=== PATIENT | female | born 1995 | race Caucasian/White ===

== ENCOUNTER 2018-02-02 23:29 | Emergency (ER) | payer OTHER ==
[2018-02-02 23:56] LABS: #Basophils 0.1 thou/uL (0.0-0.2); #Eosinphils 0.2 thou/uL (0.0-0.7); #Lymphocytes 2.7 thou/uL (1.20-3.40); #Monocytes 0.6 thou/uL (0.11-0.59); #Neutrophils 5.8 thou/uL (1.40-6.50); %Basophils 0.8 % (0.0-1.0); %Lymphocytes 29.1 % (28.0-48.0); %Neutrophils 62.1 % (31.0-61.0); Hemoglobin 12.8 g/dL (12.0-16.0); Mean Corpuscular HGB CONC 33.8 g/dL (32.0-36.0); Mean Corpuscular Hemoglobin 28.9 pg (25.0-35.0); Mean Corpuscular Volume 85.7 fL (78.0-98.0); Mean Platelet Volume 6.8 fL (7.4-10.4); Platelet Count 433 thou/uL (130-400); RBC Distribution Width 12.5 % (11.5-14.5); Red Blood Cell (RBC) Count 4.41 mill/uL (4.00-5.20); White Blood Cell (WBC) Count 9.3 thou/uL (4.8-10.8)
[2018-02-03 00:15] LABS: ALT (SGPT) 26 U/L (8-55); AST (SGOT) 21 U/L (5-34); Albumin 4.5 g/dL (3.5-5.0); Alkaline Phosphatase 63 U/L (40-150); Anion Gap 13 mmol/L (10-20); BUN (Urea Nitrogen) 10 mg/dL (7.0-18.7); Bilirubin, Total 0.2 mg/dL (0.2-1.2); Calc. Creatinine Clearance 0 mL/min (70-130); Carbon Dioxide 24 mmol/L (22-29); Chloride 107 mmol/L (98-107); Estimated GFR-MDRD Greater than 90; Globulin 3.8 g/dL (2.4-3.5); Glucose 93 mg/dL (70-105); Potassium 3.9 mmol/L (3.5-5.1); Protein, Total 8.3 g/dL (6.0-8.3); Sodium 140 mmol/L (136-145)
[2018-02-03 00:22] LABS: Bilirubin Negative (Negative); Blood, Urine Negative (Negative); Clarity CLOUDY (Clear); Glucose, Urine (Dipstick) Negative (Negative); Leukocyte Trace (Negative); Nitrite Negative (Negative); Protein, Urine (Dipstick) Negative (Neg-Trace); Specific Gravity, Urine 1.025 (1.002-1.036); pH, Urine 6.5 (5.0-9.0)
[2018-02-03 00:25] LABS: Bacteria/HPF 1+ HPF (None Seen); Hyaline Casts/LPF 4-6 HYALINE CAST LPF (0-3 Hyaline); Pathc Cast-AUWi Flag 1.01 (0-2.49); RBC/HPF 0-3 HPF (0-3)
--- NOTE | 2018-02-03 09:36 | ULT ---
PRELIMINARY REPORT/[facility]/EMERGENTY AFTER-HOURS PROCEDURE US , Transvaginal EXAM DATE/TIME: 02/03/2018 2:09 AM CLINICAL HISTORY: 22 years old, female; Pain; Other: Cramping, no bleeding, 4-5wks preg; Gestational age or lmp: ; TECHNIQUE: Real-time transvaginal obstetrical ultrasound of the maternal pelvis and a first trimester with image documentation. Transvaginal imaging was used for better evaluation of the fetus and adnexa . COMPARISON: No relevant prior studies available. FINDINGS: GESTATION: Gestation: No visible intrauterine gestation. MATERNAL: Uterus: Normal thickness endometrial stripe. Right adnexa: Small corpus luteum in the right ovary. Right ovary otherwise normal with normal Dopple r signal. Left adnexa: Left ovary is normal with normal Doppler signal. Intraperitoneal: Physiologic amount of free fluid in the pelvis. IMPRESSION: No visible intrauterine gestation. Thank you for allowing us to participate in the care of your patient. Dictated and Authenticated by: Rigo Sims MD 02/03/2018 3:33 AM Central Time ([place] & [place]) FINAL REPORT TRANSVAGINAL PELVIC ULTRASOUND WITH KELLEY SCALE AND COLOR FLOW AND SPECTRAL DOPPLER IMAGING: Date: 02/03/18 FINDINGS/IMPRESSION: I agree with the preliminary report given by Ella. POS: [facility]
== END 2018-02-03 03:50 | disposition home or self-care (01) ==
LOC: ERS 23:29
DX: O99.89 Other specified diseases and conditions complicating pregnancy, childbirth and the puerperium (principal); R10.30 Lower abdominal pain, unspecified; O99.341 Other mental disorders complicating pregnancy, first trimester; F41.9 Anxiety disorder, unspecified; F32.9 Major depressive disorder, single episode, unspecified; O99.331 Smoking (tobacco) complicating pregnancy, first trimester; F17.210 Nicotine dependence, cigarettes, uncomplicated; Z3A.01 Less than 8 weeks gestation of pregnancy
CPT/HCPCS: 36415; 76856; 80053; 81003; 81015; 84702; 85025; 86900; 86901; 87086

== ENCOUNTER 2018-02-06 14:35 | Emergency (ER) | payer OTHER | END 2018-02-06 16:00 | disposition home or self-care (01) | LOC: ERS 14:35 | DX: O99.89 Other specified diseases and conditions complicating pregnancy, childbirth and the puerperium (principal); O99.341 Other mental disorders complicating pregnancy, first trimester; F41.9 Anxiety disorder, unspecified; F32.9 Major depressive disorder, single episode, unspecified; O99.331 Smoking (tobacco) complicating pregnancy, first trimester; F17.210 Nicotine dependence, cigarettes, uncomplicated; Z3A.01 Less than 8 weeks gestation of pregnancy | CPT/HCPCS: 84702; 99284 ==

== ENCOUNTER 2018-02-18 19:23 | Emergency (ER) | payer OTHER ==
[2018-02-18 19:53] LABS: #Eosinphils 0.4 thou/uL (0.0-0.7); #Lymphocytes 1.9 thou/uL (1.20-3.40); #Monocytes 0.4 thou/uL (0.11-0.59); #Neutrophils 3.9 thou/uL (1.40-6.50); %Basophils 0.7 % (0.0-1.0); %Eosinophils 5.4 % (0.0-10.0); %Lymphocytes 28.8 % (28.0-48.0); %Monocytes 6.5 % (0.0-4.0); %Neutrophils 58.7 % (31.0-61.0); Mean Corpuscular HGB CONC 32.7 g/dL (32.0-36.0); Mean Corpuscular Hemoglobin 28.5 pg (25.0-35.0); Mean Corpuscular Volume 87.3 fL (78.0-98.0); Mean Platelet Volume 6.7 fL (7.4-10.4); Platelet Count 398 thou/uL (130-400); RBC Distribution Width 12.6 % (11.5-14.5); Red Blood Cell (RBC) Count 4.55 mill/uL (4.00-5.20); White Blood Cell (WBC) Count 6.6 thou/uL (4.8-10.8)
[2018-02-18 20:54] LABS: Bilirubin Negative (Negative); Blood, Urine Trace (Negative); Clarity CLOUDY (Clear); Glucose, Urine (Dipstick) Negative (Negative); Leukocyte Moderate (Negative); Nitrite Negative (Negative); Protein, Urine (Dipstick) Negative (Neg-Trace); Urobilinogen 0.2 mg/dL (0.2-1.0); pH, Urine 5.5 (5.0-9.0)
[2018-02-18 20:58] LABS: Bacteria/HPF 1+ HPF (None Seen); Hyaline Casts/LPF 0-3 HYALINE CAST LPF (0-3 Hyaline); Pathc Cast-AUWi Flag 0.14 (0-2.49); WBC/HPF 21-50 HPF (0-3)
--- NOTE | 2018-02-18 22:21 | ULT ---
PELVIC ULTRASOUND WITH DOPPLER: 02/18/18 PROVIDED CLINICAL HISTORY: Vaginal spotting. FINDINGS: Single live intrauterine gestation is documented with crown-rump length corresponding to a 6 week, 1 day gestation. heart tones 115 beats per minute documented. Small amount of perigestational hem orrhage. Normal appearing yolk sac. Right ovary appears sonographically normal. Left ovary is not distinctly identified. No evidence for free pelvic fluid. Color doppler and spectral analysis of the right ovarian waveform demonstrates nor mal blood flow. IMPRESSION: Single live intrauterine gestation, 6 weeks, 1 day by crown-rump length. POS: [facility]
== END 2018-02-18 22:52 | disposition home or self-care (01) ==
LOC: ERS 19:23
DX: O20.0 Threatened abortion (principal); O23.41 Unspecified infection of urinary tract in pregnancy, first trimester; O99.341 Other mental disorders complicating pregnancy, first trimester; F41.9 Anxiety disorder, unspecified; F32.9 Major depressive disorder, single episode, unspecified; Z87.891 Personal history of nicotine dependence; Z3A.01 Less than 8 weeks gestation of pregnancy
CPT/HCPCS: 36415; 76856; 81003; 81015; 84702; 85025; 87086

== ENCOUNTER 2018-07-03 22:12 | Day surgery (SDC) | payer OTHER ==
[2018-07-03 22:48] VITALS: BP 100/63; TEMP 98.5; BMI 35.9
--- NOTE | 2018-07-04 | PRG ---
DATE OF SERVICE: 07/03/2018 PRIMARY OB: Jean Quijano MD. CHIEF COMPLAINT: Decreased movement. HISTORY OF PRESENT ILLNESS: The patient is a 23-year-old, G2, P1 female with an intrauterine at 25 weeks and 4 days, who is presenting today to Labor and Delivery with decreased movement x1 day. The patient does admit that since being placed on the monitor, she has been feeling the baby move again. The patient reports a history of abnormal genetic screen of undetermined significance with followup with MFM not demonstrating any clear concerns. The patient denies any contractions, vaginal bleeding, change in discharge, urinary urgency. She denies any recent illness, fever, fall, headache, chest pain, shortness of breath. She has had nausea and vomiting with this and has had constipation with a bowel movement about every three days. The patient denies any new rashes, hip problems, knee problems, muscle weakness. PAST MEDICAL HISTORY: Negative. PAST SURGICAL HISTORY: Negative. ALLERGIES: NO KNOWN DRUG ALLERGIES. MEDICATIONS: vitamins. SOCIAL HISTORY: Denies drug, alcohol, or tobacco use. OB LABS: Unavailable at time of dictation. REVIEW OF SYSTEMS: Per HPI. PHYSICAL EXAMINATION: VITAL SIGNS: Blood pressure is 100/63, heart rate of 84, saturating 98% on room air. GENERAL: She appears to be in no acute distress. She is alert, oriented, cooperative, and pleasant to interact with. HEAD: Normocephalic, atraumatic. LUNGS: Clear to auscultation bilaterally. HEART: Has regular rate and rhythm. ABDOMEN: Gravid and soft, nontender to palpation. EXTREMITIES: Nontender with some bilateral symmetrical edema that is minimal. : Deferred. Fetus has a baseline in the 150s with moderate long-term variability, appropriate for 24 weeks' gestation. Tocometer does not demonstrate any contraction pattern. ASSESSMENT AND PLAN: The patient is a 23-year-old female with an intrauterine at 25 weeks, who had presented for decreased movement. However, the patient has begun feeling the baby move once placement of heart tracing monitor was completed. Fetus has a reassuring heart tracing for gestational age. The patient has an appointment with her primary OB, Dr. Quijano in 10 days, which we have encouraged that she keep. The patient has been given reassurance and been discharged to home. Job ID: [id number]
== END 2018-07-04 00:17 | disposition home or self-care (01) ==
LOC: L&D/OP 22:12
PROVIDERS: ATTEND Obstetrics & Gynecology
DX: O36.8120 Decreased fetal movements, second trimester, not applicable or unspecified (principal); Z3A.25 25 weeks gestation of pregnancy
CPT/HCPCS: 99282

== ENCOUNTER 2018-07-24 12:29 | Day surgery (SDC) | payer OTHER ==
[2018-07-24 13:28] VITALS: BP 115/60; TEMP 98.9
[2018-07-24 13:29] VITALS: BMI 37.5
[2018-07-24 13:35] LABS: Amnisure Test No Membranes Rupture (No Rupture)
[2018-07-24 13:36] LABS: Amnisure Internal Control QC ACCEPTABLE (ACCEPTABLE)
--- NOTE | 2018-07-24 15:01 | ULT ---
[facility] History: Pain Comparison: Pelvic ultrasound February 2018 Findings: Real-time grayscale, spectral, and color analysis of the gravid uterus performed transabdom inal approach. Single viable intrauterine with average ultrasound age 28 week 2 day with estimated date of delivery October 14, 2018. Estimated weight is 2 lbs. 11 oz., 29th percentile. Biometry: Biparietal diameter: 6.88 cm, 27 week 5 day, 13th percentile Head circumference: 26.41 cm, 28 week 5 day, 23rd percentile Abdominal circumference: 23.84 cm, 28 week 1 day, 30th percentile Femur length: 5.43 cm, 28 week 5 day, 39th percentile Amniotic fluid index: 14.3 cm. heart rate documented at 1 55 bpm. The position is breech and the placenta is anterior. The cervix is closed and measures 3.7 cm i n length. Limited anatomy of the head, cord insertion, bladder, three-vessel cord are all normal. Impression: Normal single viable intrauterine .
--- NOTE | 2018-07-25 01:52 | SS ---
DATE OF ADMISSION: 07/24/2018 DATE OF DISCHARGE: 07/24/2018 REGULAR PHYSICIAN: Jean Quijano MD. EVALUATING PHYSICIAN: Pasquale Merino MD CHIEF COMPLAINT: Leaking of fluid at home. HISTORY OF PRESENT ILLNESS: Ms. Cosme is a 23-year-old white G2, P1-0-0-1 with an estimated date of confinement of 10/12/2018, who presents complaining of suspected leakage of fluid from her vagina since 10:00 am. She denies contractions or active vaginal bleeding. Her care has been with Dr. Quijano and has apparently been complicated by an elevated NIPT test. She has seen a Maternal Medicine doctor here locally for that. PAST OBSTETRICAL HISTORY: One vaginal delivery at term. PAST MEDICAL HISTORY: None. PAST SURGICAL HISTORY: Appendectomy, tonsillectomy, adenoidectomy. CURRENT MEDICATIONS: vitamins. ALLERGIES: NO KNOWN ALLERGIES. SOCIAL HISTORY: Denies tobacco, alcohol, or drug use. FAMILY HISTORY: Unremarkable. REVIEW OF SYSTEMS: She denies nausea, vomiting, fever, chills, vaginal bleeding, or decreased movement. PHYSICAL EXAMINATION: GENERAL: In triage, she is pleasant and certainly in no acute distress. ABDOMEN: Soft, nontender, and gravid. heart rate tracing is stable. No significant regular uterine contractions are seen. AmniSure test came back negative. As a result, a limited ultrasound is obtained and this shows an ANTONIETTA of 14 with cervix of 4 cm in length. SHIP CARPENTER-III testing returns positive for Gardnerella. ASSESSMENT: 1. 27-week intrauterine . 2. No evidence of ruptured membranes at this time. 3. Bacterial vaginosis. PLAN: The nature of the results have been discussed with the patient in detail. She was given a prescription for Flagyl 250 mg one p.o. t.i.d., to be taken for 7 days. She voiced understanding of her instructions and was sent home in good condition. Dr. Quijano was notified. Job ID: [id number]
== END 2018-07-24 15:24 | disposition home or self-care (01) ==
LOC: L&D/OP 12:29
PROVIDERS: ATTEND Obstetrics & Gynecology
DX: O23.592 Infection of other part of genital tract in pregnancy, second trimester (principal); N76.0 Acute vaginitis; B96.89 Other specified bacterial agents as the cause of diseases classified elsewhere; Z3A.27 27 weeks gestation of pregnancy; Z91.018 Allergy to other foods
CPT/HCPCS: 76815; 84112; 87480; 87510; 87660; 99284

== ENCOUNTER 2018-08-20 01:20 | Day surgery (SDC) | payer OTHER ==
[2018-08-20 01:48] VITALS: BP 110/65; TEMP 98.2; BMI 37.5
--- NOTE | 2018-08-20 04:17 | SS ---
DATE OF ADMISSION: 08/20/2018 DATE OF DISCHARGE: 08/20/2018 REGULAR PHYSICIAN: Jean Quijano M.D. EVALUATING PHYSICIAN: Pasquale Merino M.D. CHIEF COMPLAINT: Spotting at home. HISTORY OF PRESENT ILLNESS: Ms. Cosme is a 23-year-old G2, P1-0-0-1 with an estimated date of confinement of 10/12/2018, who presents early this morning complaining of spotting at home. She denies associated contractions or leakage of fluid. Her care has been with Dr. Quijano and has apparently been complicated by an elevated NIPT test for which she has had evaluation by Maternal . It appears her workup has been negative. I saw her last month at which point she had an ultrasound that was normal with a normally positioned placenta. PAST OBSTETRICAL HISTORY: One vaginal delivery at term. PAST MEDICAL HISTORY: None. PAST SURGICAL HISTORY: Appendectomy, tonsillectomy. CURRENT MEDICATIONS: vitamins. ALLERGIES: NO KNOWN ALLERGIES. SOCIAL HISTORY: Denies tobacco, alcohol, or drug use. FAMILY HISTORY: Unremarkable. REVIEW OF SYSTEMS: Denies nausea, vomiting, fever, chills, ruptured membranes, or contractions. PHYSICAL EXAMINATION: VITAL SIGNS: Vital signs are stable. She is afebrile. GENERAL: She is pleasant and in no distress. ABDOMEN: Soft, nontender, and gravid. heart rate tracing is stable. There are no decelerations. No uterine contractions are seen. Sterile speculum exam shows no blood in the vagina. Sterile vaginal exam shows the cervix to be fingertip dilated, thick, and uneffaced. ASSESSMENT: 1. 32-1/2 week intrauterine . 2. No evidence of bleeding at this time. PLAN: The patient will be dismissed to home. She was given complete precautions. She voiced understanding of her discharge instructions. Dr. Quijano was notified. Job ID: [id number]
== END 2018-08-20 02:25 | disposition home or self-care (01) ==
LOC: L&D/OP 01:20
PROVIDERS: ATTEND Obstetrics & Gynecology
DX: O26.853 Spotting complicating pregnancy, third trimester (principal); Z3A.32 32 weeks gestation of pregnancy
CPT/HCPCS: 99283

== ENCOUNTER 2018-09-16 14:52 | Day surgery (SDC) | payer OTHER ==
[2018-09-16 15:28] VITALS: BMI 37.5
[2018-09-16] MEDS ORDERED: hydrALAZINE 20 MG/ML VIAL SLOW IVP PRN (15:44)
--- NOTE | 2018-09-16 15:46 | PDOC.LDHP ---
Labor and Delivery H&P Chief complaint: decreased movement HPI: Patient of Dr Quijano Here for CC: Decreased FM, now resolved EGA: 36 weeks 2 days HPI: 23 yo at 36 weeks 2 days with some decreased FM this am, now better. No LOF, no VB. No trauma. review of Systems: states HX depression but not on meds- stable. Full ROS completed and as per HPI Current gestational age (weeks): 36 (2 Days) Due date: 10/12/18 Grav: 2 Para: 1 OB History Details: x1 Current complications: none Abnormal US findings: No Past Medical History: HX Depression, not needing meds Current medications: pre- vitamins Previous surgical history: appendectomy, other (T&A) Allergies/Adverse Reactions: Allergies Allergy/AdvReac Type Severity Reaction Status Date / Time kiwi Allergy Intermediate Rash Verified 09/16/18 15:26 - Physical Exam Vital signs reviewed and normal: yes (101/59 102 18) General: NAD Heart: RRR Lungs: CTAB Abdomen: gravid [place] contractions every: No CTX - Assessment Decreased FM with Cat 1 strip at 36 weeks...audible FM and felt on abdomen - Plan Plan: observation in L&D (NST reactive, no evidence labor. OK for outpatient follow up. No acute depression concerns.)
== END 2018-09-16 16:08 | disposition home or self-care (01) ==
LOC: L&D/OP 14:52
PROVIDERS: ATTEND Obstetrics & Gynecology
DX: O36.8130 Decreased fetal movements, third trimester, not applicable or unspecified (principal); O99.343 Other mental disorders complicating pregnancy, third trimester; F32.9 Major depressive disorder, single episode, unspecified; Z3A.36 36 weeks gestation of pregnancy; Z91.018 Allergy to other foods
CPT/HCPCS: 99282

== ENCOUNTER 2018-09-21 16:01 | Day surgery (SDC) | payer OTHER ==
[2018-09-21 16:27] VITALS: BP 111/65; TEMP 98.7
[2018-09-21 16:29] VITALS: BMI 37.5
[2018-09-21] MEDS ORDERED: hydrALAZINE 20 MG/ML VIAL SLOW IVP PRN (16:59)
--- NOTE | 2018-09-21 17:03 | PDOC.FPROB ---
FMR OB H&P: HPI - History of Present Illness Chief Complaint: Contractions History of Present Illness: 23 yo @ 37.0 weeks presents for contractions that began at 12:40 pm today. She notes they have increased in frequency and now have become painful. Occurring q3-4 min. She notes that en route to hospital she began to feel SOB, a little dizzy with a funny feeling in her chest. She is unable to further describe. Denies chest pain or palpitations. No cardiac hx. Denies swelling, VB , VD, LOF, dysuria. Tolerating PO intake well. Denies current dizziness. Full ROS completed and as per HPI. Primary Care Physician: Macie FMR OB H&P: Current - Care : 2 Para: 1 Gestational age: 37.0 Due date: 10/12/2018 Course/Complications: Patient reports abnormal genetic screening, denied amniocentesis. - OB Labs Blood type: A RH: positive Antibody Screen: negative HIV: negative RPR: negative HepBsAg: negative Rubella: immune Gonorrhea: negative Chlamydia: negative FMR OB H&P: History - Past Medical History PMH: Depression, not requiring medication - OB History OB History: x1 in 2016 - Surgical History Sx History: appendectomy, tonsillectomy - Social History Social History: Denies tobacco, alcohol, or drug use this . FMR OB H&P: Medications - Current Home Medications: Medication Instructions Recorded Confirmed Type No Known 09/21/18 09/21/18 History Allergies/Adverse Reactions: Allergies Allergy/AdvReac Type Severity Reaction Status Date / Time kiwi Allergy Intermediate Rash Verified 09/16/18 15:26 FMR OB H&P: Vital Signs - Maternal Vital signs: Vital Signs - First Documented Temp Pulse Resp BP 98.7 F 126 H 18 111/65 09/21/18 16:26 09/21/18 16:26 09/21/18 16:26 09/21/18 16:26 - Heart Tones Baseline: 130 Variability: moderate Acceleration: present Deceleration: absent [place] contractions every: q3-4 min, now none FMR OB H&P: Physical Exam - Physical Exam General: awake, alert and oriented HEENT: normocephalic and atraumatic Heart: RRR, normal S1/S2, no edema General: CTAB, no respiratory distress, good air movement, no wheezing Abdomen: soft, gravid, non-tender Skin: good tugor, capillary refill <2 seconds Psychiatric: normal mood and affect - Pelvic Exam Vulva: normal hair distribution SVE: FMR OB H&P: A/P - Problem List (1) Intrauterine Current Visit: Yes Status: Acute Code(s): Z34.90 - ENCNTR FOR SUPRVSN OF NORMAL , UNSP, UNSP TRIMESTER (2) Tachycardia Current Visit: Yes Status: Acute Code(s): R00.0 - TACHYCARDIA, UNSPECIFIED Discussion: Date/Time: 09/21/18 1700 Contractions - FHT reassuring - ctx were noted initially but have slowed down, will continue to monitor - initial exam - will recheck cervix in 2 hours for evidence of progression to labor Tachycardia - will get EKG and monitor O2 sat - if normal, not likely to be PE. Anxiety could be etiology considering reported timing. This H&P was discussed with Dr. Man who agrees with the above documentation and plan.
--- NOTE | 2018-09-21 17:18 | PDOC.EVN ---
Event Note - Event Note Event Note: HISTORY AND PHYSICAL Faculty Attestation CC: CTX and mild SOB enroute to L&D HPI: 23 yo at 37 weeks today here for CTX. She was seen in L&D recently for decreased FM which had normal eval then. No chest pain but mild SOB in car to here. States CTX, no VB, no LOF, good FM Review of Systems: complete ROS completed and as per HPI Past medical: neg OB HX: ; this had "abnormal genetics" but delcined amnio Surgical HX: appy and T&A PHYSICAL BP wnl Pulse 110s afebrile respirations nonlabored, CX 2/tg/-2 (same as previous) monitors: reactive/irregular CTX on toco Assessment and plan: 37 weeks with threatened labor, dyspnea of ...possible mild anxiety. Low suspicion for acute pulmonary event as in no acvute distress. We will: check pulse OX Check EKG Obs for 2 hours monitor O2 sat
--- NOTE | 2018-09-21 17:25 | PDOC.EVN ---
Event Note - Event Note Event Note: EKG and O2 sat normal
--- NOTE | 2018-09-22 17:05 | EKG ---
Test Reason : Blood Pressure : / mmHG Vent. Rate : 107 BPM Atrial Rate : 107 BPM P-R Int : 130 ms QRS Dur : 074 ms QT Int : 342 ms P-R-T Axes : 055 036 010 degrees QTc Int : 456 ms Sinus tachycardia Otherwise normal ECG No previous ECGs available Confirmed by SAMRA TAPIA, DR. Lopez ([id number]) on 09/22/2018 5:05:08 PM Referred By: NADEEM Confirmed By:DR. Jessica CABRALES MD
== END 2018-09-21 18:00 | disposition home or self-care (01) ==
LOC: L&D/OP 16:01
PROVIDERS: ATTEND Obstetrics & Gynecology
DX: O47.1 False labor at or after 37 completed weeks of gestation (principal); O99.89 Other specified diseases and conditions complicating pregnancy, childbirth and the puerperium; R00.0 Tachycardia, unspecified; R06.00 Dyspnea, unspecified; O99.343 Other mental disorders complicating pregnancy, third trimester; F32.9 Major depressive disorder, single episode, unspecified; F41.9 Anxiety disorder, unspecified; Z91.018 Allergy to other foods; Z3A.37 37 weeks gestation of pregnancy
CPT/HCPCS: 93005; 93010; 99283

== ENCOUNTER 2018-10-01 22:42 | Day surgery (SDC) | payer OTHER ==
[2018-10-01 23:12] VITALS: BMI 38.0
[2018-10-01 23:49] LABS: Amnisure Test No Membranes Rupture (No Rupture)
[2018-10-01 23:50] LABS: Amnisure Internal Control QC ACCEPTABLE (ACCEPTABLE)
[2018-10-02] MEDS ORDERED: hydrALAZINE 20 MG/ML VIAL SLOW IVP PRN ×2 (05:14)
[2018-10-02] MEDS ORDERED: Lactated Ringer's 1,000 ML IV SCH ×2 (05:15)
--- NOTE | 2018-10-02 06:35 | PRG ---
DATE OF SERVICE: 10/01/2018 PRIMARY OB PHYSICIAN: Jean Quijano MD CHIEF COMPLAINT: Uterine contractions. HISTORY OF PRESENT ILLNESS: The patient is a 23-year-old, G2, P1 female with an intrauterine at 38 weeks 4 days, presenting to Labor and Delivery with complaints of uterine contractions. The patient reports that her contractions have been frequent and getting more strong. She reports that her cervix was 2 cm dilated in clinic yesterday. The patient has expressed concern that she lives an hour away in the [place] area. The patient denies vaginal bleeding, leakage of fluid, trauma, urinary urgency or frequency. She denies any recent illness, fever, fall, headache, chest pain, shortness of breath, nausea, vomiting, diarrhea, constipation, any new rashes, hip problems, knee problems, or muscle weakness. PAST MEDICAL HISTORY: Depression. PAST SURGICAL HISTORY: Appendectomy, tonsillectomy, and adenoidectomy. ALLERGIES: NO KNOWN DRUG ALLERGIES. MEDICATIONS: vitamins. OB LABS: Blood type is A positive. Antibody screen is negative. RPR is nonreactive. Hepatitis B surface antigen nonreactive. HIV nonreactive. GC and chlamydia negative. She is rubella immune. Third trimester HIV and VDRL are nonreactive. She had a 1-hour Glucola screen of 148 and 3-hour test is not available. REVIEW OF SYSTEMS: Per HPI. PHYSICAL EXAMINATION: VITAL SIGNS: Blood pressure 110/58, heart rate of 88, respiratory rate 16. GENERAL: She appears to be in no acute distress. She is alert, oriented, cooperative, and pleasant to interact with. HEENT: Head is normocephalic atraumatic. LUNGS: Clear to auscultation bilaterally. HEART: Regular rate and rhythm. ABDOMEN: Gravid and soft. EXTREMITIES: Nontender and nonedematous. CERVIX: Cervical exam per nursing staff, 3, 75, -3 station. Repeat exam is documented at 4, 75, -3 station 2 hours later. Given the patient's distance from the hospital, she was uncomfortable going home and was given the option to continue here for recheck. On re-evaluation, the patient was noted to be 3, 50, and -3 station, unchanged from her initial visit 5 hours previous. The patient expressed discontent with being given this information and refused being to be discharged. On my discussion with the patient, the patient again expressed concern that she had a bulgy bag that she was 4 cm and had changed from 2 cm from the doctor's office and lives an hour away and was uncomfortable going home. We gave the patient the option for continued observation on the floor. At which time, her primary physician could re-evaluate her later in the morning. I checked her cervix myself, called her cervix 2 cm, about 50% effaced, and -3 station. Given my estimation, the patient has had no change from her visit with Dr. Quijano. With these new findings, I explained to the patient. The patient expressed desire to discharge home. Again, we gave her the option of being transferred to the floor as we had a room assigned to her where she could have continued observation and re-evaluation by her doctor later in the morning. The patient again expressed desire for discharge home. We gave her term labor precautions. heart tracing, fetus with a baseline in the 120s with moderate long-term variability, positive 15 x 15 accelerations, no decelerations. Contractions occurring irregularly, difficult to assess, but at through periods of time having contractions every 2 to 4 minutes, again not all felt by the patient. ASSESSMENT AND PLAN: The patient is a 23-year-old female G2, P1 with an intrauterine at 38 weeks 4 days, who after about 6 hours of observation here in Labor and delivery has made no change to her cervix. Fetus has a category 1 tracing and reactive NST. The patient initially resistant to being discharged home, was given the option to go to the floor for observation, and on her own, decided to discharge home with term labor precautions. She does not have an another visit scheduled with her primary OB, Dr. Quijano, but does have an induction date scheduled for next Saturday. The patient is being discharged home at her request with term labor precautions. Job ID: [id number]
== END 2018-10-02 05:33 | disposition home or self-care (01) ==
LOC: L&D/OP 22:42
PROVIDERS: ATTEND Obstetrics & Gynecology
DX: O47.1 False labor at or after 37 completed weeks of gestation (principal); Z3A.38 38 weeks gestation of pregnancy; Z91.018 Allergy to other foods
CPT/HCPCS: 84112; 99285

== ENCOUNTER 2018-10-08 05:30 | Inpatient (IN) | payer OTHER ==
--- NOTE | 2018-10-08 03:35 | PDOC.LDHP ---
Labor and Delivery H&P HPI: 23 y/o at 39 and 3 weeks for term induction of labor Current gestational age (weeks): 39 Due date: 10/12/18 Grav: 2 Para: 1 Current complications: none Abnormal US findings: No Current medications: pre- vitamins Previous surgical history: other Allergies/Adverse Reactions: Allergies Allergy/AdvReac Type Severity Reaction Status Date / Time kiwi Allergy Intermediate Rash Verified 09/16/18 15:26 Social history: none - Physical Exam Vital signs reviewed and normal: yes General: NAD, resting, breathing through contractions Heart: RRR Lungs: CTAB Abdomen: NTTP Extremeties: no edema FHT: category 1 - Assessment L&D Assessment: elective induction at term - Plan Plan: admit to L&D, cervical ripening
[~2018-10-08 05:30] MED LIST: Acetaminophen 500 MG TAB PO PRN; Butorphanol Tartrate 1 MG/ML VIAL SLOW IVP PRN; Carboprost 250 MCG/ML AMP IM PRN; Diphenoxylate HCl/Atropine Tablet PO PRN; HYDROcodone/Acetaminophen 5/325 mg Tablet PO PRN; Ibuprofen 800 MG TAB PO PRN; Lidocaine 1% (PF) 30 ML VIAL SC PRN; Methylergonovine 0.2 MG/ML VIAL IM PRN; Misoprostol 200 MCG TAB PR PRN; NS / Oxytocin 40 units/1000ml 1,000 ML IV PRN; NS w/ Oxytocin 10 units 500 ML IV SCH; Promethazine HCl 25 MG/ML VIAL IM PRN; hydrALAZINE 20 MG/ML VIAL SLOW IVP PRN
[2018-10-08 07:21] VITALS: BMI 38.0
[2018-10-08] MEDS: Lactated Ringer's 1,000 ML IV SCH ×2 (07:43→18:41)
[2018-10-08] MEDS: Ondansetron PF 4 MG/2 ML Vial IVP PRN ×2 (07:57→13:27)
[2018-10-08 08:01] LABS: Hemoglobin 9.2 g/dL (12.0-16.0); Mean Corpuscular HGB CONC 33.5 g/dL (32.0-36.0); Mean Corpuscular Hemoglobin 24.8 pg (27.0-31.0); Mean Corpuscular Volume 74.1 fL (78.0-98.0); Mean Platelet Volume 7.9 fL (7.4-10.4); Platelet Count 353 thou/uL (130-400); RBC Distribution Width 14.5 % (11.5-14.5); Red Blood Cell (RBC) Count 3.69 mill/uL (4.20-5.40); White Blood Cell (WBC) Count 9.3 thou/uL (4.8-10.8)
[2018-10-08 08:41] LABS: HBSAg Index 0.16 S/CO (0-0.99); Hep B Surf Ag Non-Reactive S/CO (NonReactive)
[2018-10-08 08:47] LABS: Syphilis Antibody Nonreactive (Nonreactive); Syphilis Antibody Index 0.03 S/CO (<1.00 Non-Reactive)
[2018-10-08] MEDS ORDERED: Lidocaine 1.5%/Epinephrine 1:200,000 5 ML AMPUL IJ ONE (10:59)
[2018-10-08] MEDS ORDERED: Fentanyl 4 mcg/Bup 0.1% Cadd 100 ML ONE (11:00)
[2018-10-08] MEDS ORDERED: Bupivacaine/Epinephrine 0.25% 30 ML VIAL ONE (11:11)
[2018-10-08] MEDS ORDERED: Promethazine HCl 25 MG/ML VIAL IM PRN ×2 (13:46→18:39)
[2018-10-08] MEDS ORDERED: Acetaminophen 325 MG TAB PO PRN (13:46)
[2018-10-08] MEDS ORDERED: Ondansetron PF 4 MG/2 ML Vial IVP PRN ×2 (13:46→18:39)
[2018-10-08] MEDS ORDERED: diphenhydrAMINE 50 MG/ML VIAL IVP PRN (13:46)
[2018-10-08] MEDS ORDERED: Naloxone HCl 0.4 mg/ml Vial IVP PRN ×2 (13:46)
[2018-10-08] MEDS ORDERED: Lactated Ringer's 500 ML IV PRN (13:46)
[2018-10-08] MEDS ORDERED: ePHEDrine/0.9% NaCl/PF SYRINGE 50 mg/10 ml SLOW IVP PRN (13:46)
[2018-10-08] MEDS ORDERED: diphenhydrAMINE 50 MG/ML VIAL ONE (13:50)
[2018-10-08] MEDS ORDERED: Communication Order-Pharmacy FS SCH (14:00)
[2018-10-08] MEDS ORDERED: Fentanyl 4 mcg/Bupivacaine 0.1% Cassette 100 ML EPIDURAL SCH (14:00)
[2018-10-08] MEDS ORDERED: Misoprostol 200 MCG TAB ONE (15:03)
[2018-10-08] MEDS ORDERED: diphenhydrAMINE 25 MG CAP PO PRN (18:39)
[2018-10-08] MEDS ORDERED: Lanolin Ointment 7 GM TUBE TOP PRN (18:39)
[2018-10-08] MEDS ORDERED: Methylergonovine 0.2 MG/ML VIAL IM PRN (18:39)
[2018-10-08] MEDS ORDERED: Benzocaine-Menthol 82.5 ML CAN TOP PRN (18:39)
[2018-10-08] MEDS ORDERED: Preparation H Ointment 28 GM TUBE PR PRN (18:39)
[2018-10-08] MEDS ORDERED: Bisacodyl 10 MG SUPP PR PRN (18:39)
[2018-10-08] MEDS ORDERED: hydrALAZINE 20 MG/ML VIAL SLOW IVP PRN (18:39)
[2018-10-08] MEDS ORDERED: Measles/Mumps/Rubella 10 MCG/0.5 ML VIAL SC ONE (18:39)
[2018-10-08] MEDS ORDERED: Varicella virus, LIVE 0.5 ML VIAL SC ONE (18:39)
[2018-10-08] MEDS ORDERED: Adacel (T-DAP) 0.5 ML SYRINGE IM ONE (18:39)
[2018-10-08] MEDS ORDERED: Zolpidem Tartrate 5 MG TAB PO PRN (18:39)
[2018-10-08] MEDS ORDERED: HYDROcodone/Acetaminophen 5/325 mg Tablet PO PRN ×2 (18:39)
[2018-10-08] MEDS ORDERED: Milk Of Magnesia 30 ML UDCUP PO PRN (18:39)
[2018-10-08] MEDS ORDERED: NS / Oxytocin 40 units/1000ml 1,000 ML IV SCH (18:45)
[2018-10-08] MEDS: Ibuprofen 800 MG TAB PO SCH (19:39)
[2018-10-08] MEDS: Docusate Calcium (SURFAK) 240 MG CAP PO SCH (21:33)
[2018-10-09] MEDS: Ibuprofen 800 MG TAB PO SCH ×3 (03:04→20:47)
[2018-10-09 04:48] LABS: #Eosinphils 0.1 thou/uL (0.0-0.7); #Lymphocytes 2.4 thou/uL (1.20-3.40); #Monocytes 0.5 thou/uL (0.11-0.59); #Neutrophils 5.6 thou/uL (1.40-6.50); %Basophils 0.5 % (0.0-1.0); %Eosinophils 1.2 % (0.0-10.0); %Lymphocytes 27.7 % (21.0-51.0); %Monocytes 5.2 % (0.0-10.0); %Neutrophils 65.3 % (42.0-75.0); Hemoglobin 8.1 g/dL (12.0-16.0); Mean Corpuscular HGB CONC 32.4 g/dL (32.0-36.0); Mean Corpuscular Hemoglobin 24.6 pg (27.0-31.0); Mean Corpuscular Volume 75.9 fL (78.0-98.0); Mean Platelet Volume 8.1 fL (7.4-10.4); Platelet Count 290 thou/uL (130-400); RBC Distribution Width 14.8 % (11.5-14.5); White Blood Cell (WBC) Count 8.6 thou/uL (4.8-10.8)
[2018-10-09] MEDS: Prenatal Vitamin 1 TAB PO SCH (09:38)
[2018-10-09] MEDS: Docusate Calcium (SURFAK) 240 MG CAP PO SCH ×2 (09:38→20:47)
[2018-10-09] MEDS: Ferrous Sulfate 325 MG TAB PO SCH ×2 (09:38→16:10)
--- NOTE | 2018-10-09 23:36 | PDOC.PP ---
Post Progress Note Post Day #: 1 PO intake tolerated: yes Flatus: yes Ambulation: yes Vital Signs (12 hours) Temp Pulse Resp BP Pulse Ox 10/09/18 20:00 98.9 F 65 18 121/61 99 Weight Weight 208 lb - Physical Examination General: NAD Cardiovascular: no m/r/g, RRR Respiratory: clear to auscultation bilaterally Abdominal: + bowel sounds, lochia Extremities: negative homans (B) Neurological: no gross focal deficits Psychiatric: A&Ox3, normal affect (DC in AM) Result Diagrams: 10/09/18 04:06 Additional Labs: Post Labs Blood Type A POSITIVE 10/08/18 07:46 Hep Bs Antigen Non-Reactive S/CO (NonReactive) 10/08/18 07:46
[2018-10-10] MEDS: Ibuprofen 800 MG TAB PO SCH (05:43)
[2018-10-10 08:25] VITALS: TEMP 98.1
[2018-10-10] MEDS: Ferrous Sulfate 325 MG TAB PO SCH (09:00)
[2018-10-10] MEDS: Docusate Calcium (SURFAK) 240 MG CAP PO SCH (09:03)
[2018-10-10] MEDS: Prenatal Vitamin 1 TAB PO SCH (09:03)
[2018-10-10 12:35] VITALS: BP 114/59
== END 2018-10-10 13:15 | disposition home or self-care (01) | DRG 807 ==
LOC: L&D 06:45 → 3SE 17:39
PROVIDERS: ADMIT Obstetrics & Gynecology; ATTEND Obstetrics & Gynecology
PROC: 10E0XZZ Delivery of Products of Conception, External Approach (ICD-10-PCS; principal; 2018-10-08)
PROC: 3E033VJ Introduction of Other Hormone into Peripheral Vein, Percutaneous Approach (ICD-10-PCS; 2018-10-08)
DX: O80 Encounter for full-term uncomplicated delivery (principal); Z37.0 Single live birth; Z3A.36 36 weeks gestation of pregnancy
CPT/HCPCS: 36415; 51702; 85025; 85027; 86780; 86850; 86900; 86901; 87340; J1200; J2405; J2590; J3490

== ENCOUNTER 2019-08-06 21:52 | Emergency (ER) | payer OTHER ==
[2019-08-06 23:40] LABS: #Eosinphils 0.2 thou/uL (0.0-0.7); #Lymphocytes 1.9 thou/uL (1.20-3.40); #Monocytes 0.4 thou/uL (0.11-0.59); #Neutrophils 4.6 thou/uL (1.40-6.50); %Basophils 0.4 % (0.0-1.0); %Eosinophils 2.3 % (0.0-10.0); %Lymphocytes 26.7 % (21.0-51.0); %Monocytes 5.3 % (0.0-10.0); %Neutrophils 65.3 % (42.0-75.0); Hemoglobin 11.8 g/dL (12.0-16.0); Mean Corpuscular HGB CONC 34.2 g/dL (32.0-36.0); Mean Corpuscular Hemoglobin 29.5 pg (27.0-31.0); Mean Corpuscular Volume 86.2 fL (78.0-98.0); Mean Platelet Volume 7.4 fL (7.4-10.4); Platelet Count 359 thou/uL (130-400); RBC Distribution Width 13.2 % (11.5-14.5); White Blood Cell (WBC) Count 7.1 thou/uL (4.8-10.8)
[2019-08-06 23:40] LABS: Bacteria/HPF None Seen HPF (None Seen); Bilirubin Negative (Negative); Blood, Urine Negative (Negative); Clarity Clear (Clear); Glucose, Urine (Dipstick) Normal (Negative); Leukocyte 75 Leu/uL (Negative); Nitrite Negative (Negative); Protein, Urine (Dipstick) 10 mg/dL (Neg-Trace); RBC/HPF 0-3 HPF (0-3); Squamous Epithelial 0-3 HPF (0-3); Urobilinogen Normal mg/dL (Less than 2); WBC/HPF 0-3 HPF (0-3)
[2019-08-06 23:47] LABS: BHCG - Serum POSITIVE (NEGATIVE); Pregs Control Background? CLEAR/WHITE (CLR/WHITE); Pregs Control Bar Appear? YES (CONTROL BAR)
[2019-08-07 00:09] LABS: ALT (SGPT) 20 U/L (8-55); AST (SGOT) 21 U/L (5-34); Albumin 3.9 g/dL (3.5-5.0); Alkaline Phosphatase 54 U/L (40-110); Anion Gap 13 mmol/L (10-20); BUN (Urea Nitrogen) 9 mg/dL (7.0-18.7); Bilirubin, Total Less than 0.2 mg/dL (0.2-1.2); Calc. Creatinine Clearance 0 mL/min (70-130); Calcium 9.3 mg/dL (7.8-10.44); Carbon Dioxide 21 mmol/L (22-29); Chloride 107 mmol/L (98-107); Estimated GFR-MDRD Greater than 90; Globulin 3.6 g/dL (2.4-3.5); Glucose 75 mg/dL (70-105); Lipase 8 U/L (8-78); Potassium 3.9 mmol/L (3.5-5.1); Protein, Total 7.5 g/dL (6.0-8.3); Sodium 137 mmol/L (136-145)
== END 2019-08-07 01:00 | disposition home or self-care (01) ==
LOC: ERS 21:52
DX: O99.89 Other specified diseases and conditions complicating pregnancy, childbirth and the puerperium (principal); R10.9 Unspecified abdominal pain; O99.342 Other mental disorders complicating pregnancy, second trimester; F41.9 Anxiety disorder, unspecified; F32.9 Major depressive disorder, single episode, unspecified; O99.332 Smoking (tobacco) complicating pregnancy, second trimester; Z3A.15 15 weeks gestation of pregnancy
CPT/HCPCS: 36415; 80053; 81003; 81015; 83690; 84702; 84703; 85025

== ENCOUNTER 2019-11-12 11:40 | Day surgery (SDC) | payer OTHER ==
[2019-11-12] MEDS ORDERED: hydrALAZINE 20 MG/ML VIAL SLOW IVP PRN (12:53)
--- NOTE | 2019-11-12 12:55 | PDOC.LDHP ---
Labor and Delivery H&P Chief complaint: decreased movement (at 29 weeks) HPI: Patient of Dr Quijano here for decreased FM since ysterday PM. No CTX, no VB. No fevers. 24 yo at 29 weeks 5 days, no other issues. Now feels baby move. No recent trauma. Review of Systems: complete ROS completed and as per HPI Current gestational age (weeks): 29 (5) Due date: 01/23/20 Dating criteria: last menstrual period Grav: 3 Para: 2 OB History Details: x 2 with last 2019 Current complications: none Abnormal US findings: No Current medications: pre- vitamins Previous surgical history: appendectomy, other (T&A) Allergies/Adverse Reactions: Allergies Allergy/AdvReac Type Severity Reaction Status Date / Time kiwi Allergy Intermediate Rash Verified 05/04/19 21:23 - Physical Exam Vital signs reviewed and normal: yes (116/68 98.4 98% 18) General: NAD Heart: RRR Lungs: CTAB Abdomen: gravid Extremeties: no edema FHT: category 1 (reaxctive for age at 29) - Assessment Decreased FM at 29 weeks, normal/reassuring 20 minute strip - Plan Plan: observation in L&D (NSTs typically start at 32 weeks per ACOG. This was more of monitoring to assess FHT presence. No BPP as only 29 weeks and now feels baby move. Reassurrance given. return if decresaed FM persists.)
[2019-11-13] MEDS ORDERED: FLU VACC QS2020-21(6MOS UP)/PF 60 MCG/0.5 ML SYRINGE IM ONE (09:00)
== END 2019-11-12 12:55 | disposition home or self-care (01) ==
LOC: L&D/OP 11:40
PROVIDERS: ATTEND Obstetrics & Gynecology
DX: O36.8130 Decreased fetal movements, third trimester, not applicable or unspecified (principal); Z3A.29 29 weeks gestation of pregnancy; Z91.018 Allergy to other foods

== ENCOUNTER 2019-12-12 22:48 | Day surgery (SDC) | payer OTHER ==
--- NOTE | 2019-12-12 23:06 | PDOC.LDHP ---
Labor and Delivery H&P Chief complaint: contractions HPI: 24yo F @ 34. wks presents with complaint of contractions. Pt states at 1900 tonight she started to experience pain in her mid back and RUQ that felt like contractions. She timed them to be 3-4 minutes apart over the course of 1-2 hours prompting her to seek eval. Pt denies any other sx. States she did ride in the car for about 5 hours today which is not typical for her. Denies any vaginal bleeding, discharge, LOF, dysuria, fever, chills. Denies any complications in her at this point. Current gestational age (weeks): 34 Due date: 01/23/20 Dating criteria: last menstrual period, first trimester ultrasound Grav: 3 Para: 2 OB History Details: 2 previous uncomplicated term vaginal deliveries Current complications: none Past Medical History: None Current medications: pre-jong vitamins Previous surgical history: appendectomy Allergies/Adverse Reactions: Allergies Allergy/AdvReac Type Severity Reaction Status Date / Time kiwi Allergy Intermediate Rash Unverified 12/12/19 23:15 Social history: none - Physical Exam Vital signs reviewed and normal: yes General: NAD Heart: RRR Lungs: CTAB Abdomen: gravid Extremeties: no edema FHT: category 1, variability present - Vaginal Exam cm dilated: 1 Effacement: 0% Station: -3 - OB Labs Blood type: A RH: positive 1 hour GCT: positive (147) 3 hour GTT: 80,182,127,138 - Assessment 3rd Trimester - R/O labor - Plan -: -SVE: //High -Galax: q10-12 -Cat 1 strip, reactive -Recheck after 2 hours -SVE: unchanged -[place]: sporadic >15 minutes Plan: Pt not making cervical change and no consistent contraction pattern that is continuing to space out. Will DC with return/labor precautions. Keep routine OB F/U.
[2019-12-12 23:14] VITALS: BMI 39.3
== END 2019-12-13 01:45 | disposition home or self-care (01) ==
LOC: L&D/OP 22:48
PROVIDERS: ATTEND Obstetrics & Gynecology
DX: O47.03 False labor before 37 completed weeks of gestation, third trimester (principal); O99.891 Other specified diseases and conditions complicating pregnancy; M54.9 Dorsalgia, unspecified; Z3A.34 34 weeks gestation of pregnancy; Z91.018 Allergy to other foods

== ENCOUNTER 2020-01-15 10:28 | Outpatient (CLI) | payer OTHER ==
[2020-01-15 17:15] LABS: SARS-CoV-2 MS2 Positive; SARS-CoV-2 N Gene Negative; SARS-CoV-2 S Gene Negative; SARS-CoV-2 by NAA Not Detected (NotDetected); SARS-CoV-2 orf1ab Negative
== END 2020-01-15 10:29 | disposition home or self-care (01) ==
LOC: LABBT 10:28
PROVIDERS: ATTEND Obstetrics & Gynecology
DX: Z01.812 Encounter for preprocedural laboratory examination (principal); Z20.828 Contact with and (suspected) exposure to other viral communicable diseases
CPT/HCPCS: 87635; U0003

== ENCOUNTER 2020-01-18 05:30 | Inpatient (IN) | payer OTHER ==
--- NOTE | 2020-01-17 22:35 | PDOC.LDHP ---
Labor and Delivery H&P Chief complaint: scheduled induction HPI: 24 y/o at 30 and 2/7 weeks for elective induction of labor. Current gestational age (weeks): 39 Due date: 01/23/20 Grav: 3 Para: 2 Current complications: other Abnormal US findings: No Current medications: pre- vitamins Allergies/Adverse Reactions: Allergies Allergy/AdvReac Type Severity Reaction Status Date / Time kiwi Allergy Intermediate Rash Unverified 12/12/19 23:15 Social history: none - Physical Exam Vital signs reviewed and normal: yes General: NAD, resting Heart: RRR Lungs: CTAB Abdomen: gravid Extremeties: no edema FHT: category 1 - Assessment L&D Assessment: elective induction at term - Plan Plan: admit to L&D, cervical ripening
[~2020-01-18 05:30] MED LIST changes: +Lactated Ringer's 1,000 ML IV SCH; +Ondansetron PF 4 MG/2 ML Vial IVP PRN; +Zolpidem Tartrate 5 MG TAB PO PRN
[2020-01-18 06:25] VITALS: BMI 39.4
[2020-01-18 07:33] LABS: Hemoglobin 9.3 g/dL (12.0-16.0); Mean Corpuscular HGB CONC 32.3 g/dL (32.0-36.0); Mean Corpuscular Hemoglobin 23.5 pg (27.0-31.0); Mean Corpuscular Volume 72.7 fL (78.0-98.0); Mean Platelet Volume 8.1 fL (7.4-10.4); Platelet Count 332 thou/uL (130-400); RBC Distribution Width 15.8 % (11.5-14.5); Red Blood Cell (RBC) Count 3.96 mill/uL (4.20-5.40); White Blood Cell (WBC) Count 7.4 thou/uL (4.8-10.8)
[2020-01-18 07:50] LABS: Syphilis Antibody Nonreactive (Nonreactive); Syphilis Antibody Index 0.04 S/CO (<1.00 Non-Reactive)
[2020-01-18 07:51] LABS: HBSAg Index 0.19 S/CO (0-0.99); Hep B Surf Ag Non-Reactive S/CO (NonReactive)
[2020-01-18] MEDS ORDERED: FLU VACC QS2020-21(6MOS UP)/PF 60 MCG/0.5 ML SYRINGE IM ONE (09:00)
[2020-01-18] MEDS ORDERED: Calcium Carbonate 500 MG ChewTAB PO SCH (16:00)
[2020-01-18] MEDS ORDERED: Methylergonovine 0.2 MG TAB ONE (17:24)
[2020-01-18] MEDS ORDERED: Measles/Mumps/Rubella 10 MCG/0.5 ML VIAL SC ONE (18:30)
[2020-01-18] MEDS ORDERED: NS / Oxytocin 40 units/1000ml 1,000 ML IV SCH (18:30)
[2020-01-18] MEDS ORDERED: hydrALAZINE 20 MG/ML VIAL SLOW IVP PRN (18:30)
[2020-01-18] MEDS ORDERED: Preparation H Ointment 28 GM TUBE PR PRN (18:30)
[2020-01-18] MEDS ORDERED: Benzocaine-Menthol 82.5 ML CAN TOP PRN (18:30)
[2020-01-18] MEDS ORDERED: diphenhydrAMINE 25 MG CAP PO PRN (18:30)
[2020-01-18] MEDS ORDERED: Adacel (T-DAP) 0.5 ML SYRINGE IM ONE (18:30)
[2020-01-18] MEDS ORDERED: Ondansetron PF 4 MG/2 ML Vial IVP PRN (18:30)
[2020-01-18] MEDS ORDERED: Varicella virus, LIVE 0.5 ML VIAL SC ONE (18:30)
[2020-01-18] MEDS ORDERED: Methylergonovine 0.2 MG/ML VIAL IM PRN (18:30)
[2020-01-18] MEDS ORDERED: Misoprostol 200 MCG TAB VAG PRN (18:30)
[2020-01-18] MEDS ORDERED: Lanolin Ointment 7 GM TUBE TOP PRN (18:30)
[2020-01-18] MEDS ORDERED: Milk Of Magnesia 30 ML UDCUP PO PRN (18:30)
[2020-01-18] MEDS ORDERED: Promethazine HCl 25 MG/ML VIAL IM PRN (18:30)
[2020-01-18] MEDS ORDERED: Bisacodyl 10 MG SUPP PR PRN (18:30)
[2020-01-18] MEDS ORDERED: HYDROcodone/Acetaminophen 5/325 mg Tablet PO PRN ×2 (18:30)
[2020-01-18] MEDS ORDERED: Zolpidem Tartrate 5 MG TAB PO PRN (18:30)
[2020-01-18] MEDS ORDERED: Preparation H Ointment 57 gram tube TOP PRN (22:36)
[2020-01-18] MEDS: Docusate Calcium (SURFAK) 240 MG CAP PO SCH (23:07)
[2020-01-18] MEDS: Ibuprofen 800 MG TAB PO SCH (23:08)
[2020-01-19] MEDS: Ibuprofen 800 MG TAB PO SCH ×2 (05:06→13:03)
[2020-01-19 06:53] LABS: Hemoglobin 8.6 g/dL (12.0-16.0); Mean Corpuscular HGB CONC 31.3 g/dL (32.0-36.0); Mean Corpuscular Hemoglobin 23.5 pg (27.0-31.0); Mean Corpuscular Volume 75.2 fL (78.0-98.0); Mean Platelet Volume 7.9 fL (7.4-10.4); Platelet Count 295 thou/uL (130-400); RBC Distribution Width 15.7 % (11.5-14.5); Red Blood Cell (RBC) Count 3.64 mill/uL (4.20-5.40); White Blood Cell (WBC) Count 9.2 thou/uL (4.8-10.8)
[2020-01-19] MEDS: Ferrous Sulfate 325 MG TAB PO SCH ×3 (08:13→17:14)
[2020-01-19] MEDS: Docusate Calcium (SURFAK) 240 MG CAP PO SCH (08:16)
[2020-01-19] MEDS ORDERED: Prenatal Vitamin 1 TAB PO SCH (09:00)
[2020-01-19 15:43] VITALS: BP 103/51; TEMP 98.5
--- NOTE | 2020-01-19 19:15 | PDOC.PP ---
Post Progress Note Post Day #: 1 PO intake tolerated: yes Flatus: yes Ambulation: yes Vital Signs (12 hours) Temp Pulse Resp BP Pulse Ox 01/19/20 15:42 98.5 F 80 20 103/51 L 01/19/20 11:35 98.0 F 82 20 117/57 L 01/19/20 08:10 98.4 F 66 20 104/59 L 98 Weight Weight 223 lb - Physical Examination General: NAD Cardiovascular: no m/r/g, RRR Respiratory: clear to auscultation bilaterally, non-labored breathing Abdominal: + bowel sounds, lochia, no distention, appropriately TTP Extremities: negative homans (B) Neurological: no gross focal deficits Psychiatric: A&Ox3, normal affect Result Diagrams: 01/19/20 06:25 Additional Labs: Post Labs Hep Bs Antigen Non-Reactive S/CO (NonReactive) 01/18/20 07:02 Blood Type A POSITIVE 01/18/20 07:02
--- NOTE | 2020-01-20 01:51 | DN ---
DATE OF PROCEDURE: 01/18/2020 TIME OF SERVICE: 1717 Central Standard time. PREOPERATIVE DIAGNOSIS: Intrauterine at 39 weeks and 2 days with a term elective induction of labor. POSTOPERATIVE DIAGNOSIS: Intrauterine at 39 weeks and 2 days with a term elective induction of labor. PROCEDURE PERFORMED: Spontaneous vaginal delivery over intact perineum. FINDINGS: Viable male , weighing 3626 g or 8 pounds 0 ounce, Apgars 8 and 9. QUANTITATIVE BLOOD LOSS: 225 mL. COMPLICATIONS: None. DESCRIPTION OF PROCEDURE: The patient presented to [facility] where she was admitted to the labor and delivery service. The patient underwent a normal and uneventful labor with normal cervical dilatation until she was found to be completely dilated. She was then allowed to push and was able to bring the baby down and delivered the baby in a vertex presentation without difficulties. Once the head delivered in occiput anterior position, the shoulders followed spontaneously along with the rest of the baby's body. Once out the baby's mouth and nose were bulb suctioned. The cord was clamped and cut and baby was handed to waiting attendants. Cord blood was collected. Gentle fundal massage was performed and the placenta delivered intact without problems. Hemostasis was assured. Quantitative blood loss was calculated. Inspection of the cervix, vaginal vault, and perineum did not reveal any lacerations needing suturing. Once again, hemostasis was within normal limits and the patient was allowed to recover in the labor and delivery room. Baby went to nursery. Job ID: [id number]
== END 2020-01-19 20:24 | disposition home or self-care (01) | DRG 807 ==
LOC: L&D 05:58 → 3SW 22:04
PROVIDERS: ADMIT Obstetrics & Gynecology; ATTEND Obstetrics & Gynecology
PROC: 10E0XZZ Delivery of Products of Conception, External Approach (ICD-10-PCS; principal; 2020-01-18)
DX: O80 Encounter for full-term uncomplicated delivery (principal); Z37.0 Single live birth; Z3A.39 39 weeks gestation of pregnancy; Z20.828 Contact with and (suspected) exposure to other viral communicable diseases; Z28.21 Immunization not carried out because of patient refusal
CPT/HCPCS: 36415; 85027; 86780; 86850; 86900; 86901; 87340; J2210; J2405; J2590